=== PATIENT | male | born 1940 | race Caucasian/White ===

== ENCOUNTER 2024-02-22 11:13 | Emergency (ER) | payer MEDICARE, BC ==
[2024-02-22] MEDS: Atropine 0.1 MG/ML 10 ML Syringe IVPUSH ONE (11:30)
[2024-02-22 11:41] LABS: BASOPHILS ABSOLUTE AUTO 0.1 K/mm3 (0.0-0.2); BASOPHILS PERCENT AUTO 0.9 % (0.0-1.0); EOSINOPHILS ABSOLUTE AUTO 0.4 K/mm3 (0.0-0.4); EOSINOPHILS PERCENT AUTO 5.6 % (0.0-6.0); HEMATOCRIT 46.7 % (42.0-52.0); HEMOGLOBIN 15.4 gm/dl (14.0-18.0); IMMATURE GRAN ABSOLUTE AUTO 0.02 K/mm3 (0.00-0.05); IMMATURE GRAN PERCENT AUTO 0.3 % (0.0-0.4); LYMPHOCYTES ABSOLUTE AUTO 2.2 K/mm3 (1.0-4.8); LYMPHOCYTES PERCENT AUTO 28.1 % (24.0-44.0); MEAN CORPUSCULAR HEMOGLOBIN 30.1 pg (28.0-32.0); MEAN CORPUSCULAR VOLUME 91.4 fl (83.0-99.0); MEAN PLATELET VOLUME 9.9 fl (9.4-12.4); MONOCYTES ABSOLUTE AUTO 0.8 K/mm3 (0.0-0.8); MONOCYTES PERCENT AUTO 10.3 % (0.0-8.0); NEUTROPHILS ABSOLUTE AUTO 4.3 K/mm3 (1.8-7.7); NEUTROPHILS PERCENT AUTO 54.8 % (41.0-71.0); PLATELET COUNT,PLT 260 K/mm3 (150-400); RED BLOOD CELL COUNT 5.11 M/mm3 (4.52-5.90); WHITE BLOOD CELL COUNT,WBC 7.84 K/mm3 (3.9-11.3)
[2024-02-22] MEDS: Atropine 0.1 MG/ML 10 ML Syringe ONE (11:42)
[2024-02-22] MEDS: Sodium Chloride 0.9% 10 ML Syringe FLUSH PRN ×2 (11:42→11:43)
[2024-02-22 12:02] LABS: INR 0.98; PROTHROMBIN TIME 10.4 SECONDS (9.7-12.0)
[2024-02-22 12:15] LABS: ALBUMIN 3.4 g/dl (3.4-5.0); ANION GAP 10.4 (5-15); BILIRUBIN TOTAL 0.6 mg/dL (0.2-1.0); BUN/CREATININE RATIO 21.7 (14-18); CALCIUM 10.3 mg/dL (8.5-10.1); CREATININE 1.2 mg/dL (0.7-1.3); EST CRCL DRUG DOSING (CG) 47.46 mL/min; POTASSIUM,K 4.4 mEq/L (3.5-5.1); PROTEIN TOTAL,TP 6.9 g/dl (6.4-8.2)
[2024-02-22] MEDS: Aspirin 81 MG Tab.Chew PO ONE (13:14)
[2024-02-22] MEDS: Heparin Sodium/D5W 25,000 UNITS/500 ML BAG IV SCH (13:17)
[2024-02-22] MEDS: Heparin Sodium 5,000 Units/ML Vial IVPUSH ONE (13:17)
== END 2024-02-22 14:00 ==
LOC: MERGE 11:13 → JD.ED 11:13
DX: I21.4 Non-ST elevation (NSTEMI) myocardial infarction (principal); R00.1 Bradycardia, unspecified; Z79.899 Other long term (current) drug therapy
CPT/HCPCS: 36415; 71045; 80053; 84443; 84484; 85025; 85610; 93005; 96365; 96375; 99285; A9270; J0461; J1644; J3490; 93010; 99291